=== PATIENT | male | born 2000 | race Caucasian/White ===

== ENCOUNTER 2020-01-03 13:21 | Outpatient (CLI) | payer OTHER, SELFPAY | END 2020-01-03 13:22 | disposition home or self-care (01) | PROVIDERS: PCP Internal Medicine; Visit Provider Internal Medicine | DX: F32.2 Major depressive disorder, single episode, severe without psychotic features (principal) | CPT/HCPCS: 36415; 84443 ==

== ENCOUNTER 2022-03-30 09:35 | Outpatient (CLI) | payer OTHER, SELFPAY ==
--- NOTE | 2022-03-30 11:00 | NEURO_ITS ---
Impression: # Complains of tingling after extended use of hands. # No Carpal Tunnel Syndrome. # Early mild ulnar neuropathy, right more than left, across the elbows. # Normal needle/EMG exam. Nerve Conduction Studies Anti Sensory Summary Table Stim Site NR Peak (ms) P-T Amp (?V) Site1 Site2 Delta-P (ms) Dist (cm) Jerry (m/s) Left Median Anti Sensory (2-3nd Digit) Wrist 2.8 58.2 Wrist 2-3nd Digit 2.8 14.0 50 Wrist 2.8 44.9 Wrist 2-3nd Digit 2.8 14.0 50 Right Median Anti Sensory (2-3nd Digit) Wrist 2.8 59.5 Wrist 2-3nd Digit 2.8 14.0 50 Wrist 2.7 53.9 Wrist 2-3nd Digit 2.8 14.0 50 Left Radial Anti Sensory (Base 1st Digit) Wrist 2.4 17.2 Wrist Base 1st Digit 2.4 0.0 Right Radial Anti Sensory (Base 1st Digit) Wrist 2.3 9.9 Wrist Base 1st Digit 2.3 0.0 Left Ulnar Anti Sensory (5th Digit) Wrist 2.5 54.3 Wrist 5th Digit 2.5 14.0 56 Right Ulnar Anti Sensory (5th Digit) Wrist 2.4 20.3 Wrist 5th Digit 2.4 14.0 58 Motor Summary Table Stim Site NR Onset (ms) O-P Amp (mV) Site1 Site2 Delta-0 (ms) Dist (cm) Jerry (m/s) Left Median Motor (Abd Poll Brev) Wrist 2.7 6.8 Elbow Wrist 5.0 31.0 62 Elbow 7.7 5.9 Right Median Motor (Abd Poll Brev) Wrist 3.0 5.0 Elbow Wrist 4.9 30.0 61 Elbow 7.9 4.3 Left Ulnar Motor (Abd Dig Minimi) Wrist 2.7 6.8 A Elbow Wrist 5.7 33.0 58 A Elbow 8.4 5.9 B Elbow Wrist 4.4 28.0 64 B Elbow 7.1 5.5 Right Ulnar Motor (Abd Dig Minimi) Wrist 2.4 7.5 A Elbow Wrist 6.2 33.0 53 A Elbow 8.6 6.1 B Elbow Wrist 4.6 26.0 57 B Elbow 7.0 6.6 F Wave Studies NR F-Lat (ms) L-R F-Lat (ms) Left Median (Mrkrs) (Abd Poll Brev) 27.78 0.00 Right Median (Mrkrs) (Abd Poll Brev) 27.78 0.00 Left Ulnar (Mrkrs) (Abd Dig Min) 28.71 0.70 Right Ulnar (Mrkrs) (Abd Dig Min) 28.01 0.70 EMG Side Muscle Nerve Root Ins Act Fibs Amp Dur Recrt Comment Right 1stDorInt Ulnar C8-T1 Nml Nml Nml Nml Nml Right Ext Indicis Radial (Post Int) C7-8 Nml Nml Nml Nml Nml Right Ext Digitorum Radial (Post Int) C7-8 Nml Nml Nml Nml Nml Right BrachioRad Radial C5-6 Nml Nml Nml Nml Nml Right PronatorTeres Median C6-7 Nml Nml Nml Nml Nml Right Abd Poll Brev Median C8-T1 Nml Nml Nml Nml Nml Left 1stDorInt Ulnar C8-T1 Nml Nml Nml Nml Nml Left Ext Indicis Radial (Post Int) C7-8 Nml Nml Nml Nml Nml Left Ext Digitorum Radial (Post Int) C7-8 Nml Nml Nml Nml Nml Left BrachioRad Radial C5-6 Nml Nml Nml Nml Nml Left PronatorTeres Median C6-7 Nml Nml Nml Nml Nml Left Abd Poll Brev Median C8-T1 Nml Nml Nml Nml Nml MTDD
== END 2022-03-30 09:36 | disposition home or self-care (01) ==
PROVIDERS: PCP Internal Medicine; Visit Provider Nurse Practitioner
DX: R20.0 Anesthesia of skin (principal); G56.23 Lesion of ulnar nerve, bilateral upper limbs
CPT/HCPCS: 95886; 95911

== ENCOUNTER → 2023-08-03 09:44 | Outpatient (CLI) | payer OTHER, SELFPAY ==
--- NOTE | ~2023-08-03 | XR_ITS ---
EXAMINATION: XR sacroiliac joints min 3V DATE: 08/03/2023 10:33 INDICATION: Low back pain, unspecified. TECHNIQUE: 3 views of the sacroiliac joints were obtained. COMPARISON: None. FINDINGS: Bone alignment is normal. No fracture. There is mild osteoarthritis of the sacroiliac joint s characterized by tiny osteophytes. IMPRESSION: 1. Mild osteoarthritis of the sacroiliac joints. Reviewed, dictated and finalized at location A.
--- NOTE | ~2023-08-03 | XR_ITS ---
EXAMINATION: XR lumbar spine min 4V DATE: 08/03/2023 10:34 INDICATION: Low back pain, unspecified. TECHNIQUE: 5 views of lumbar spine were obtained. COMPARISON: None. FINDINGS: There is 8 degrees levocurvature of lumbar spine there is mild chronic anterior wedging of L1 vertebral body. Intervertebral disc heights are normal. There is multilevel mild facet joint osteo arthritis. IMPRESSION: 1. Mild lumbar facet joint osteoarthritis. Reviewed, dictated and finalized at location A.
== END ==
PROVIDERS: PCP Nurse Practitioner Family; Visit Provider Nurse Practitioner Family
DX: M47.896 Other spondylosis, lumbar region (principal); M47.898 Other spondylosis, sacral and sacrococcygeal region
CPT/HCPCS: 72110; 72202

== ENCOUNTER 2023-12-08 13:51 | Outpatient (CLI) | payer OTHER, SELFPAY ==
[2023-12-08 16:46] LABS: Alanine Aminotransferase 28 U/L (6-50); Albumin Level 4.3 g/dL (3.5-5.1); Alkaline Phosphatase 100 U/L (38-126); Anion Gap 10 mmol/L (8-16); Aspartate Amino Transferase 47 U/L (17-59); Bilirubin,Total 0.6 mg/dL (0.2-1.3); Blood Urea Nitrogen 11 mg/dL (9-20); Calcium 9.2 mg/dL (8.4-10.2); Carbon Dioxide 25 mmol/L (22-30); Chloride 105 mmol/L (98-107); Cholesterol 167 mg/dL (0-200); Estimated Glomerular Filt Rate > 60; Glucose 90 mg/dL (65-110); HDL Direct 36 mg/dL; Potassium 3.9 mmol/L (3.4-5.0); Sodium 140 mmol/L (137-145); Triglycerides 86 mg/dL (<150)
[2023-12-08 16:48] LABS: Basophils Absolute Auto 0.1 K/mm3 (0.0-0.1); Basophils Percent Auto 0.5 % (0.2-1.2); Eosinophils Absolute Auto 0.2 K/mm3 (0-0.3); Eosinophils Percent Auto 1.5 % (0-4.4); Hematocrit 46.3 % (42.0-52.0); Hemoglobin 14.4 g/dL (14.0-18.0); Immature Granulocyte Absolute 0.03 K/mm3 (0.00-0.031); Immature Granulocyte Percent A 0.3 % (0-0.5); Lymphocytes Absolute Auto 2.91 K/mm3 (0.9-3.2); Lymphocytes Percent Auto 25.1 % (18.3-44.2); Mean Corpuscular HGB Conc 31.1 g/dl (32-36); Mean Corpuscular Hemoglobin 26.2 pg (26-34); Mean Corpuscular Volume 84.2 fl (80-100); Mean Platelet Volume 10.9 fl (7.4-10.4); Monocytes Absolute Auto 0.8 K/mm3 (0.1-0.6); Monocytes Percent Auto 6.9 % (2.6-8.5); Neutrophils Absolute Auto 7.6 K/mm3 (1.3-6.7); Neutrophils Percent Auto 65.7 % (45.5-73.1); Platelet Count Result 351 k/mm3 (150-375); Red Cell Distribution Width 13.6 % (11.5-14.5); White Blood Count 11.6 K/mm3 (4.5-10.0)
[2023-12-08 16:50] LABS: Rheumatoid Factor < 12.0 IU/ML (<12)
[2023-12-08 16:58] LABS: LDL Cholesterol Direct 98 mg/dL
[2023-12-08 17:32] LABS: Vitamin D 25 Hydroxy < 12.8 ng/mL
[2023-12-08 18:28] LABS: Erythrocyte Sedimentation Rate 10 mm/hr (0-20)
[2023-12-11 07:28] LABS: HLA B27 Negative (Negative)
== END 2023-12-08 13:52 | disposition home or self-care (01) ==
LOC: ANHWCLAB 13:54
PROVIDERS: PCP Nurse Practitioner Family; Visit Provider Nurse Practitioner Family
DX: Z13.220 Encounter for screening for lipoid disorders (principal); E55.9 Vitamin D deficiency, unspecified; M25.50 Pain in unspecified joint; M54.50 Low back pain, unspecified; Z82.69 Family history of other diseases of the musculoskeletal system and connective tissue
CPT/HCPCS: 36415; 80053; 80061; 82306; 85025; 85652; 86038; 86430; 86812